=== PATIENT | female | born 1955 | race Caucasian/White ===

== ENCOUNTER → 2018-07-17 13:12 | Outpatient (CLI) | payer OTHER, SELFPAY ==
--- NOTE | 2018-07-17 13:20 | CT_ITS ---
CT pelvis wo con HISTORY: Attention right SI joint. Low back pain posterior pelvic pain pain extends down right leg : BURSITIS ORDERING PHYSICIAN: Robert Alegre PATIENT AGE: 63 years COMPARISON: CT abdomen and pelvis from October 2008. Axial views only available Technique: Helical CT scanning performed through the pelvis with axial, coronal and sagittal reconstruction performed. Additional 3-D volume rendering reconstruction. All CT scans at the facility use one or more dose reduction, viz: automated exposure control, ma/kV adjustment per patient size (including targeted exams where dose is matched to indication, i.e. head), or iterative reconstruction technique. FINDINGS: . I do not have previous lumbar studies the patient does have a prominent grade 2 anterolisthesis of L4 on L5 noted on the reconstruction images. Suspect this was Likely due to a pars defect and resulting prominent spondylolisthesis L4/5. (I have assigned the lowest defined vertebral body is L5 for this discussion.) There is been posterior fusion through this segment with pedicle screws at L3 and L5 with associated posterior fixation rods providing fixation to the L4/5 listhesis. There is a laminectomy through this segment also noted along with the disc spacer device at L 3/4 disc space. Pronounced narrowing at the L 4/5 disc level, and somewhat fragmented appearance to the posterior elements at L4/5.. Prominent facet arthropathy is seen at the at these lower levels of L-spine The patient has transitional vertebra which is designated as L5. L5 demonstrates prominent sacralization to the left with pseudoarthrosis with the left sacral ala. There are some reactive changes about the pseudoarthrosis. Yielding some mild sclerosis on both sides of this region. The right sacrum intact and unremarkable. I see no insufficiency fracture or other findings at the right sacrum. The SI joints seem to be symmetrical and similar to previous 2009 CT. Only scant sclerosis along the iliac margin of SI joints bilaterally but. The slight double line appearance on axial image 37 at the iliac margin right SI joint was seen in 2009 as well... The hips appear intact bilaterally and stable. Small cyst or herniation. Is seen at the anterior base of right femoral neck. No obvious joint effusion at either hip.. Pubis intact. Stable. The patient has a TAXATION AGENT shunt catheter was enters the abdomen cavity above and to the right of the umbilicus.. It is only partially imaged. Incidental small 3 mm calculus lower pole calyx right kidney.. No intrapelvic findings no adenopathy or masses at the pelvis. IMPRESSION (Note: The lowest segmented lumbar Vertebra was labeled L5 for this discussion) . .The patient has undergone posterior fusion L3-L5 with posterior laminectomy. . Pedicle screws seen at the designated L3 & L5 vertebra, with posterior fixation rods providing stabilization of the grade 2 anterior spondylolisthesis of L4 on L5 ( likely resulting from underlying spondylolysis at L4) Right sacrum appears intact and unremarkable. & Both SI joints appear intact. With No appreciable change since [address] Left sacrum: sacralization of designated L5 forms pseudoarthrosis to the left sacrum.. Mild reactive changes about the pseudoarthrosis at left sacrum appears similar to [address] Additional comments regarding right leg pain: I would note that there is greater narrowing of the right L4/5 neural foramen than left. L4/5.. Also note that Facet hypertrophy narrows the right foramen at L5/S1 more so than left foramen
== END ==
PROVIDERS: PCP Nurse Practitioner Family; Visit Provider Orthopaedic Surgery
DX: M46.1 Sacroiliitis, not elsewhere classified (principal)
CPT/HCPCS: 72192

== ENCOUNTER 2018-09-13 16:36 | Emergency (ER) | payer OTHER, SELFPAY ==
[2018-09-13 16:47] VITALS: BP 141/67; PULSE 73; RESP 18; TEMP 36.6; O2SAT 98; BMI 27.4
--- NOTE | 2018-09-13 16:54 | CT_ITS ---
CT lumbar spine wo con INDICATION: Pain following injury ITS.REASON: pain ORDERING PHYSICIAN: Santiago Craft MD PATIENT AGE: 63 years COMPARISON: 07 17 18 TECHNIQUE: Axial images obtained with sagittal and coronal reformats. All CT scans at the facility use one or more dose reduction, viz: automated exposure control, ma/kV adjustment per patient size (including targeted exams where dose is matched to indication, i.e. head), or iterative reconstruction technique. FINDINGS: There is lumbarization of the S1 segment. There is mild anterior wedging of T12 age indeterminate T11-T12: Degenerative disc disease. T12-L1: Unremarkable. L1-L2: Degenerative disc disease. L2-L3: Degenerative disc disease with endplate hypertrophy L3-L4: Degenerative disc disease with mild retrolisthesis of L3 of 4 mm with facet and ligamentum flavum hypertrophy and bulging disc with narrowing of the canal and bilateral foraminal narrowing. L4-L5: Prior posterior fusion. There are interpedicular screws at L4 and S1. Prior fusion at L4-L5 with posterior laminotomy defect. L5-S1: 13 mm anterolisthesis of L5 on S1 with loss of disc space. Prior posterior laminotomy. No acute fracture or dislocation. There is mild lumbar scoliosis convex right. There is a 2 mm left renal calculus nonobstructing IMPRESSION: 1. No definite acute fracture. 2. Mild wedging of T12 which may be old. MRI may be of further value if clinically warranted. 3. Multilevel degenerative changes as described above. Please see above for detailed description at each level. 4. Postsurgical changes from prior fusion at L4-L5 and S1. There is 13 mm anterolisthesis of L5 on S1. No previous exams are available for comparison.
--- NOTE | 2018-09-13 16:55 | [facility].EDGENADL ---
ED Disposition Clinical Impression: Strain of lumbar region Qualifiers: Encounter type: initial encounter Qualified Code(s): S39.012A - Strain of muscle, fascia and tendon of lower back, initial encounter Disposition: Home, Self-Care Condition on Discharge: Good Instructions: DI for Low Back Pain Referrals: Ladan Cortez APRN [Primary Care Provider] - - Critical Care Critical Care Time: No Attestation: On 09/13/18, the high probability of a clinically significant, sudden or life threatening deterioration of the following system(s) required my full and direct attention, intervention and personal management. The time I documented below is in addition to time spent performing reported procedures but includes the following listed in this critical care notation. Medical Decision Making - Medical Records Medical records reviewed: Yes: I reviewed the patient's medical records. - Juvencio Inquiry Pt receiving controlled substance: Yes Juvencio was queried for this patient: No Reason not queried -: Juvencio login issues Risks and benefits of using a controlled substance: were discussed with pt by me Vital Signs: 09/13/18 16:47 09/13/18 18:02 Temperature 97.8 F Temperature Source Oral Pulse Rate [Right Brachial] 73 66 Respiratory Rate 18 Blood Pressure [Right Arm] 141/67 H 156/79 H Blood Pressure Mean [Right Arm] 91 104 Blood Pressure Source [Right Arm] Automatic Cuff Blood Pressure Position [Right Arm] Sitting 02 Sat by Pulse Oximetry 98 99 Oxygen Delivery Method Room Air - Lab Data Lab results reviewed: Yes: I reviewed the patient's lab results. Lab Results 09/13/18 18:27: Urine Color Yellow, Urine Appearance Sl cloudy, Urine pH 6.0, Ur Specific [place] >= 1.030, Urine Protein Negative, Urine Glucose (UA) Negative, Urine Ketones Negative, Urine Blood Negative, Urine Nitrate Negative, Urine Bilirubin Negative, Urine Urobilinogen 0.2, Ur Leukocyte Esterase Negative, Ur Squamous Epith Cells 10-20, Urine Mucus 3+ Orders (Tests/Meds): ED MEDICATIONS Discontinued Medications Generic Name Dose Route Start Last Admin Trade Name Freq PRN Reason Stop Dose Admin Hydrocodone Bitart/Acetaminophen 1 tab 09/13/18 16:55 09/13/18 17:12 [place] 5/325mg Tablet PO 09/13/18 16:56 1 tab ONCE ONE Administration ORDERS Category Date Time Status CT lumbar spine wo con Stat Cat Scan 09/13/18 16:54 Taken - CT Data CT Scan: L-Spine Time Received: 19:04 (degen disc disease) ED CT Reviewed: Yes: I have viewed the radiologist's interpretation Preliminary Findings: Abnormal, No Fracture Seen Medical Decision Narrative: motrin, medrol, ice, see your doctor, return if worse General Adult HPI - General Stated complaint: pAIN IN BACK AREA,CAN'T WALK Time Seen by Provider: 09/13/18 16:55 Source of Information: Patient - History of Present Illness HPI narrative: mild to mod ache left lower back today after pulling branches, o/w no trauma, did not fall, ambulates w/ pain, no incont, no abdominal pain or fever, norco warnings given - Related Data Allergies Allergy/AdvReac Type Severity Reaction Status Date / Time heparin AdvReac Severe CLOTS Unverified 04/02/17 15:19 Iodine Allergy Unknown Uncoded 04/02/17 15:19 Povidone Iodine Allergy Unknown Uncoded 04/02/17 15:19 [facility] History - Hepatitis A Screen Attestation statement:: This patient has been screened for Hepatitis A risk factors. ROS Obtained: Yes Systems reviewed as appropriate & no additional complaints - Constitutional Constitutional: Denies fever(s) - Eyes Eyes: Denies change in vision - ENT Ears, Nose, Mouth, and Throat: Denies neck pain - Cardiovascular Cardiovascular: Denies chest pain - Respiratory Respiratory: No dyspnea - Gastrointestinal Gastrointestingal: Denies: abdominal pain - Genitourinary Female Genitourinary: Denies urinary incontinence - Musculoskeletal Musculoskeletal: Reports back pain
--- NOTE | 2018-09-13 16:58 | ED_ITS ---
ED Disposition Clinical Impression: Strain of lumbar region Qualifiers: Encounter type: initial encounter Qualified Code(s): S39.012A - Strain of muscle, fascia and tendon of lower back, initial encounter Disposition: Home, Self-Care Condition on Discharge: Good Instructions: DI for Low Back Pain Referrals: Ladan Cortez APRN [Primary Care Provider] - - Critical Care Critical Care Time: No Attestation: On 09/13/18, the high probability of a clinically significant, sudden or life threatening deterioration of the following system(s) required my full and direct attention, intervention and personal management. The time I documented below is in addition to time spent performing reported procedures but includes the following listed in this critical care notation. Medical Decision Making - Medical Records Medical records reviewed: Yes: I reviewed the patient's medical records. - Juvencio Inquiry Pt receiving controlled substance: Yes Juvencio was queried for this patient: No Reason not queried -: Juvencio login issues Risks and benefits of using a controlled substance: were discussed with pt by me Vital Signs: 09/13/18 16:47 09/13/18 18:02 Temperature 97.8 F Temperature Source Oral Pulse Rate [Right Brachial] 73 66 Respiratory Rate 18 Blood Pressure [Right Arm] 141/67 H 156/79 H Blood Pressure Mean [Right Arm] 91 104 Blood Pressure Source [Right Arm] Automatic Cuff Blood Pressure Position [Right Arm] Sitting 02 Sat by Pulse Oximetry 98 99 Oxygen Delivery Method Room Air - Lab Data Lab results reviewed: Yes: I reviewed the patient's lab results. Lab Results 09/13/18 18:27: Urine Color Yellow, Urine Appearance Sl cloudy, Urine pH 6.0, Ur Specific [place] >= 1.030, Urine Protein Negative, Urine Glucose (UA) Negative, Urine Ketones Negative, Urine Blood Negative, Urine Nitrate Negative, Urine Bilirubin Negative, Urine Urobilinogen 0.2, Ur Leukocyte Esterase Negative, Ur Squamous Epith Cells 10-20, Urine Mucus 3+ Orders (Tests/Meds): ED MEDICATIONS Discontinued Medications Generic Name Dose Route Start Last Admin Trade Name Freq PRN Reason Stop Dose Admin Hydrocodone Bitart/Acetaminophen 1 tab 09/13/18 16:55 09/13/18 17:12 [place] 5/325mg Tablet PO 09/13/18 16:56 1 tab ONCE ONE Administration ORDERS Category Date Time Status CT lumbar spine wo con Stat Cat Scan 09/13/18 16:54 Taken - CT Data CT Scan: L-Spine Time Received: 19:04 (degen disc disease) ED CT Reviewed: Yes: I have viewed the radiologist's interpretation Preliminary Findings: Abnormal, No Fracture Seen Medical Decision Narrative: motrin, medrol, ice, see your doctor, return if worse General Adult HPI - General Stated complaint: pAIN IN BACK AREA,CAN'T WALK Time Seen by Provider: 09/13/18 16:55 Source of Information: Patient - History of Present Illness HPI narrative: mild to mod ache left lower back today after pulling branches, o/w no trauma, did not fall, ambulates w/ pain, no incont, no abdominal pain or fever, norco warnings given - Related Data Allergies Allergy/AdvReac Type Severity Reaction Status Date / Time
[2018-09-13 18:02] VITALS: BP 156/79; PULSE 66; O2SAT 99
[2018-09-13 18:33] LABS: Microscopic, Urine URINE MICROSCOPIC (MICROSCOPIC)
[2018-09-13 18:34] LABS: Appearance,Urine SL CLOUDY (Clear); Bilirubin,Urine Negative (Negative); Blood, Urine Negative (Negative); Color,Urine YELLOW (Yellow); Glucose,Urine (UA) Negative (Negative); Ketones,Urine Negative (Negative); Leukocyte Esterase,Urine Negative (Negative); Nitrate,Urine Negative (Negative); Protein,Urine Negative (Negative); Specific Gravity, Urine >= 1.030 (1.005-1.030); Urobilinogen,Urine 0.2 EU/dl (0.2)
[2018-09-13 18:36] LABS: Mucus,Urine 3+ /lpf
[2018-09-13 19:21] VITALS: BP 132/74; PULSE 74; RESP 16; TEMP 36.7; O2SAT 98
== END 2018-09-13 19:22 | disposition home or self-care (01) ==
PROVIDERS: Emergency Provider Emergency Medicine Emergency Medical Services; PCP Nurse Practitioner Family
DX: S39.012A Strain of muscle, fascia and tendon of lower back, initial encounter (principal)
CPT/HCPCS: 72131; 81001; 99282

== ENCOUNTER → 2019-02-27 10:09 | Outpatient (CLI) | payer MEDICARE, OTHER, SELFPAY ==
--- NOTE | 2019-02-27 | ECG_ITS ---
APPROVED REPORT Exam: Resting ECG HR:73 bpm ECG Measurements Heart Rate 73 AXES [place] 194 P 67 QRSd 94 QRS 44 QT 400 T 54 QTc 440 <Conclusion> Normal sinus rhythm Late R-wave progression, unchanged Abnormal ECG Electronically signed by : Srinath King, 02/27/2019 12:55:28
--- NOTE | 2019-02-27 10:35 | XR_ITS ---
PROCEDURE: XR CHEST 2V CLINICAL HISTORY: COUGH,ALLERGIES COMPARISON: No exams were available for comparison FINDINGS: The cardiomediastinal silhouette and pulmonary vascularity are within normal limits. The lungs are clear without infiltrates, suspicious nodules, or pleural effusions. WARRANTY CLERK shunt traverses the right hemithorax. There is an old fracture of the right 8th rib. IMPRESSION: No acute findings. Dictated by: Franck Carrasquillo MD 02/27/2019 12:30 Electronically signed by Franck Carrasquillo MD in [place] 02/27/2019 12:30
[2019-02-27 10:48] LABS: Basophils % 0.4 % (0.1-2.0); Eosinophils % 0.1 % (0.1-12.0); Hematocrit 36.8 % (37.0-47.0); Lymphocytes # 0.7 K/mm3 (0.7-4.5); Lymphocytes % 18.3 % (10-50); Mean Corpuscular HGB Conc 29.8 g/dL (31.8-35.4); Mean Corpuscular Hemoglobin 26.8 pg (27.0-31.2); Mean Corpuscular Volume 89.8 fl (81-99); Mean Platelet Volume 8.5 fl (7.4-10.4); Monocytes # 0.1 K/mm3 (0.1-1.0); Monocytes % 1.1 % (1.7-9.3); Neutrophils # 3.3 K/mm3 (1.8-7.8); Neutrophils % 80.1 % (37.0-80.0); Platelet Count 324 K/mm3 (142-424); Red Cell Distribution Width 15.2 % (11.5-17.5); White Blood Count 4.1 K/mm3 (4.8-10.8)
[2019-02-27 10:58] LABS: Activated Partial Thrombo Time 25.7 seconds (23.6-34.0); INR 0.99 (0.9-1.1); Prothrombin Time 10.3 seconds (9.4-11.8)
[2019-02-27 12:37] LABS: Alanine Aminotransferase 16 U/L (12-78); Albumin Level 3.6 gm/dL (3.4-5.0); Alkaline Phosphatase 54 U/L (46-116); Anion Gap 12.5 mEq/L (5-15); Aspartate Amino Transferase 14 U/L (15-37); Bilirubin,Total 0.2 mg/dL (0.2-1.0); Blood Urea Nitrogen 18 mg/dL (7-18); Calcium 9.1 mg/dL (8.5-10.1); Carbon Dioxide 27 mmol/L (21.0-32.0); Chloride 104 mmol/L (98-107); Chol/HDL Ratio 2.9 (1-3.5); Cholesterol 156 mg/dL (140-200); Creatinine,Serum 0.61 mg/dL (0.55-1.02); Estimated Glomerular Filt Rate 98 ml/min (>60); GFR (African American) 119 ML/MIN (>60); Globulin 3.5 gm/dl (1.3-3.2); Glucose 125 mg/dL (74-106); HDL Cholesterol 53 mg/dL (29-89); LDL Cholesterol 77 mg/dL (0-130); Potassium 4.5 mmoL/L (3.5-5.1); Sodium 139 mmol/L (136-145); Total Protein,Serum 7.1 gm/dL (6.4-8.2); Triglycerides 128 mg/dL (30-200); VLDL Cholesterol 26 mg/dL (0-40)
== END ==
PROVIDERS: Visit Provider Nurse Practitioner Family
DX: Z01.818 Encounter for other preprocedural examination (principal); E11.65 Type 2 diabetes mellitus with hyperglycemia; Z51.81 Encounter for therapeutic drug level monitoring
CPT/HCPCS: 36415; 71046; 80053; 80061; 85025; 85610; 85730; 93005

== ENCOUNTER → 2019-09-30 13:36 | Outpatient (CLI) | payer MEDICARE, OTHER, SELFPAY ==
--- NOTE | 2019-09-30 13:52 | XR_ITS ---
PROCEDURE: XR CHEST 2V CLINICAL HISTORY: PRIOR SMOKER COMPARISON: XR CHEST 2V from 02/27/2019 FINDINGS: The cardiomediastinal silhouette and pulmonary vascularity are within normal limits. The lungs are clear without infiltrates, suspicious nodules, or pleural effusions. STORE CONSULTANT shunt traverses the right hemithorax. No acute bony findings. IMPRESSION: No change with no acute finding Dictated by: Franck Carrasquillo MD 09/30/2019 14:31 Electronically signed by Franck Carrasquillo MD in [facility] 09/30/2019 14:31
--- NOTE | 2019-09-30 14:17 | ECG_ITS ---
APPROVED REPORT Exam: Resting ECG HR:67 bpm ECG Measurements Heart Rate 67 AXES [place] 194 P 60 QRSd 98 QRS 16 QT 396 T 39 QTc 418 <Conclusion> Normal sinus rhythm Normal ECG Electronically signed by : Saúl Kim, 09/30/2019 16:34:44
== END ==
LOC: RT 13:42 → RAD 13:47
PROVIDERS: PCP Nurse Practitioner Family; Visit Provider Nurse Practitioner Family
DX: Z01.818 Encounter for other preprocedural examination (principal)
CPT/HCPCS: 71046; 93005

== ENCOUNTER → 2020-07-30 12:22 | Outpatient (CLI) | payer MEDICARE, OTHER, SELFPAY ==
--- NOTE | 2020-07-30 12:34 | XR_ITS ---
PROCEDURE: XR WRIST LT MIN 3V CLINICAL INDICATION: Pain COMPARISON: No exams were available for comparison FINDINGS: No fracture or dislocation of the wrist. No lytic or blastic change. There is normal mineralization. Minimal osteoarthritic change 1st metacarpophalangeal joint Other findings:None. IMPRESSION: No acute findings of the wrist. Dictated by: Franck Carrasquillo MD 07/30/2020 13:28 Franck Carrasquillo MD in [place] 07/30/2020 13:28
--- NOTE | 2020-07-30 12:35 | XR_ITS ---
PROCEDURE: XR HAND LT MIN 3V CLINICAL INDICATION: Injury with pain COMPARISON: No exams were available for comparison FINDINGS: There is an oblique fracture involving the proximal aspect of the proximal phalanx of the 5th digit with the distal fragment displaced medially by approximately 2 mm. There is good alignment. Mild osteoarthritic changes 3rd M CP joint Other findings:None. IMPRESSION: Minimally displaced fracture proximal phalanx 5th digit Dictated by: Franck Carrasquillo MD 07/30/2020 13:26 Franck Carrasquillo MD in [place] 07/30/2020 13:26
== END ==
PROVIDERS: PCP Nurse Practitioner Family; Visit Provider Nurse Practitioner Family
DX: S60.222A Contusion of left hand, initial encounter (principal)
CPT/HCPCS: 73110; 73130

== ENCOUNTER → 2020-11-10 09:51 | Outpatient (CLI) | payer OTHER, SELFPAY ==
[2020-11-10 10:35] LABS: Microscopic, Urine URINE MICROSCOPIC (MICROSCOPIC)
[2020-11-10 11:03] LABS: Appearance,Urine CLEAR (Clear); Bilirubin,Urine Negative (Negative); Blood, Urine Negative (Negative); Color,Urine YELLOW (Yellow); Glucose,Urine (UA) Negative (Negative); Ketones,Urine Negative (Negative); Leukocyte Esterase,Urine Negative (Negative); Nitrate,Urine Negative (Negative); Protein,Urine Negative (Negative); Urobilinogen,Urine 0.2 EU/dl (0.2)
[2020-11-10 11:10] LABS: WBC,Urine Occasional #/hpf (0-3)
[2020-11-10 11:12] LABS: Basophils % 0.7 % (0.1-2.0); Eosinophils % 0.7 % (0.1-12.0); Hematocrit 38.6 % (37.0-47.0); Hemoglobin 11.9 g/dL (12.2-16.2); Lymphocytes # 1.7 K/mm3 (0.7-4.5); Lymphocytes % 27.5 % (10-50); Mean Corpuscular HGB Conc 30.7 g/dL (31.8-35.4); Mean Corpuscular Hemoglobin 27.9 pg (27.0-31.2); Mean Corpuscular Volume 90.8 fl (81-99); Mean Platelet Volume 8.7 fl (7.4-10.4); Monocytes # 0.2 K/mm3 (0.1-1.0); Monocytes % 3.3 % (1.7-9.3); Neutrophils # 4.1 K/mm3 (1.8-7.8); Neutrophils % 67.7 % (37.0-80.0); Platelet Count 305 K/mm3 (142-424); Red Blood Count 4.25 M/mm3 (4.20-5.40); Red Cell Distribution Width 16.2 % (11.5-17.5)
--- NOTE | 2020-11-10 11:13 | ECG_ITS ---
APPROVED REPORT Exam: Resting ECG HR:64 bpm ECG Measurements Heart Rate 64 AXES [place] 202 P 77 QRSd 92 QRS 51 QT 420 T 33 QTc 433 Conclusion Normal sinus rhythm Normal ECG Electronically signed by : Srinath King, 11/13/2020 21:11:14
[2020-11-10 11:20] LABS: Activated Partial Thrombo Time 24.2 seconds (22.8-30.6); Prothrombin Time 10.9 seconds (10.1-12.5)
[2020-11-10 11:21] LABS: INR 0.92 (0.9-1.1)
[2020-11-10 11:22] LABS: Hemoglobin A1C 5.5 % (4.0-6.0)
[2020-11-10 11:43] LABS: Alanine Aminotransferase 15 U/L (12-78); Albumin Level 4.4 g/dl (3.5-5.0); Albumin/Globulin Ratio 1.4 (1.1-1.8); Alkaline Phosphatase 99 U/L (38-126); Aspartate Amino Transferase 21 U/L (14-36); Bilirubin,Total 0.4 mg/dl (0.2-1.3); Blood Urea Nitrogen 14 mg/dl (7-17); Calcium 9.3 mg/dl (8.4-10.2); Carbon Dioxide 26 mmol/L (22.0-30.0); Chloride 106 mmol/L (98-107); Estimated Glomerular Filt Rate 100 ml/min (>60); GFR (African American) 121 ML/MIN (>60); Globulin 3.1 g/dL (1.3-3.2); Glucose 91 mg/dl (74-100); Sodium 141 mmol/L (136-145); Total Protein,Serum 7.5 g/dl (6.3-8.2)
[2020-11-10 12:01] LABS: 25-OH Vitamin D, Total 50.7 ng/mL (30-100)
[2020-11-13 14:25] LABS: Miscellaneous Test 233
[2020-12-01 07:46] LABS: Cotinine <1.0; Nicotine <1.0
== END ==
PROVIDERS: Visit Provider Orthopaedic Surgery
DX: Z51.81 Encounter for therapeutic drug level monitoring; Z79.01 Long term (current) use of anticoagulants; Z79.899 Other long term (current) drug therapy; Z01.818 Encounter for other preprocedural examination; M25.532 Pain in left wrist
CPT/HCPCS: 36415; 80053; 80323; 81001; 82306; 83036; 85025; 85610; 85730; 87081; 93005

== ENCOUNTER 2021-02-22 11:00 | Outpatient (RCR) | payer MEDICARE, OTHER, SELFPAY | END 2021-03-06 14:47 | disposition home or self-care (01) | LOC: PT.CARL 11:00 | PROVIDERS: PCP Nurse Practitioner Family; Visit Provider Orthopaedic Surgery | DX: M25.561 Pain in right knee (principal); Z96.651 Presence of right artificial knee joint; M54.16 Radiculopathy, lumbar region | CPT/HCPCS: 97010; 97014; 97110; 97140; 97163; 97164; G0283 ==

== ENCOUNTER 2021-03-03 10:06 | Emergency (ER) | payer MEDICARE, OTHER, SELFPAY ==
[2021-03-03] VITALS (12 sets, daily range): BP systolic 155–189; BP diastolic 65–112; PULSE 66–83; RESP 14–21; TEMP 36.5–36.6; O2SAT 96–100; BMI 27.1; BMI 27.9
--- NOTE | 2021-03-03 10:09 | PC.NURSE ---
accucheck 127
--- NOTE | 2021-03-03 10:12 | CT_ITS ---
PROCEDURE: CT HEAD/BRAIN WO CON CLINICAL INDICATION: stroke prot. COMPARISON: CT HDWO CT HEAD W/O CONTRAST from 07/20/2013 TECHNIQUE: Axial images obtained. All CT scans at the facility use one or more dose reduction, viz: automated exposure control, ma/kV adjustment per patient size (including targeted exams where dose is matched to indication, i.e. head), or iterative reconstruction technique. FINDINGS: Significant artifact is present in the suprasellar region from prior aneurysm clips or coils obscuring much the brain from the star artifact at this level. There are mild encephalomalacia changes in the left cerebellum inferiorly. No midline shift or mass effect. A DE ICER FINISHER shunt traverses the right frontal lobe with the tip in the region of the anterior horn of the right lateral ventricle similar to the previous exam. Scattered periventricular and subcortical white matter hypointensities are noted suggesting ischemic gliotic change from microvascular disease. Small area of decreased attenuation is present in the right centrum semiovale centrally not readily apparent on the previous study and could represent area of interval ischemic gliotic change. No acute intracranial hemorrhage is apparent. No hydrocephalus. Of IMPRESSION: 1. No definite acute intracranial findings. 2. 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 3. Right DE ICER FINISHER shunt present with the tip at the region of the anterior horn right lateral ventricle. No hydrocephalus. Dictated by: Franck Carrasquillo MD 03/03/2021 10:32 Franck Carrasquillo MD in [place] 03/03/2021 10:32
--- NOTE | 2021-03-03 10:15 | XR_ITS ---
PROCEDURE: XR CHEST PORTABLE CLINICAL HISTORY: stroke prot COMPARISON: CR XR CHEST 2V from 02/27/2019 CR XR CHEST 2V from 09/30/2019 FINDINGS: Borderline cardiomegaly without failure. SPECIAL CERTIFICATE DICTATOR shunt traverses the right hemithorax. Pericardial fat pad noted on the right. The lungs are clear without infiltrates, suspicious nodules, or pleural effusions. No acute bony abnormalities. IMPRESSION: No acute findings. Dictated by: Franck Carrasquillo MD 03/03/2021 12:28 Franck Carrasquillo MD in [place] 03/03/2021 12:28
--- NOTE | 2021-03-03 10:27 | HMH.EDGENADL ---
ED Disposition Clinical Impression: Cerebrovascular accident Qualifiers: CVA mechanism: unspecified Qualified Code(s): I63.9 - Cerebral infarction, unspecified Disposition: Home, Self-Care Condition on Discharge: Fair Instructions: DI for Stroke-Ischemic Additional Instructions: Continue taking aspirin daily. Add Plavix Plavix 75 mg daily for 21 days. Contact your primary care doctor to arrange outpatient echocardiogram and 30-day heart monitor. Follow-up at [facility] stroke clinic. Call [phone] to make appointment. We spoke with Dr. Rodriguez. Dr. Tavera's office will call you to arrange follow-up in their office. Return to the emergency department if symptoms worsen. Prescriptions: Clopidogrel Bisulfate [Plavix 75mg Tab] 75 mg PO DAILY #21 tab Transmission Status: Pending to [facility] Referrals: Elham Pabon [Primary Care Provider] - - Critical Care Critical Care Time: No Attestation: On 03/03/21, the high probability of a clinically significant, sudden or life threatening deterioration of the following system(s) required my full and direct attention, intervention and personal management. The time I documented below is in addition to time spent performing reported procedures but includes the following listed in this critical care notation. Medical Decision Making - Medical Records Medical records reviewed: Yes: I reviewed the patient's medical records. MR Comment: Reviewed records on the [facility] epic link. The patient has had an MRI of her brain in 2019 after her neurosurgery/coil. The patient also confirms that she can safely get an MRI with her hardware. Dr. Kaminski also reports that MRI is safe. - Juvencio Inquiry Pt receiving controlled substance: No Vital Signs: 03/03/21 10:11 03/03/21 10:35 03/03/21 11:00 Temperature 97.7 F Temperature Source Oral Pulse Rate 83 74 Pulse Rate [Radial] 79 Respiratory Rate 16 18 18 Blood Pressure 167/83 H 155/71 H Blood Pressure [Right Arm] 188/65 H Blood Pressure Mean 101 93 Blood Pressure Mean [Right Arm] 106 Blood Pressure Position [Right Arm] Sitting 02 Sat by Pulse Oximetry 96 97 97 Oxygen Delivery Method Room Air 03/03/21 12:01 03/03/21 12:30 03/03/21 13:13 Temperature Temperature Source Pulse Rate 69 68 74 Pulse Rate [Radial] Respiratory Rate 16 14 16 Blood Pressure 171/84 H 162/73 H 182/85 H Blood Pressure [Right Arm] Blood Pressure Mean 105 95 117 Blood Pressure Mean [Right Arm] Blood Pressure Position [Right Arm] 02 Sat by Pulse Oximetry 98 97 98 Oxygen Delivery Method 03/03/21 13:30 03/03/21 14:00 03/03/21 15:47 Temperature Temperature Source Pulse Rate 73 66 77 Pulse Rate [Radial] Respiratory Rate 18 18 20 Blood Pressure 177/95 H 189/83 H 164/76 H Blood Pressure [Right Arm] Blood Pressure Mean 122 118 105 Blood Pressure Mean [Right Arm] Blood Pressure Position [Right Arm] 02 Sat by Pulse Oximetry 99 99 100 Oxygen Delivery Method 03/03/21 16:01 Temperature Temperature Source Pulse Rate Pulse Rate [Radial] Respiratory Rate 21 Blood Pressure 159/112 H Blood Pressure [Right Arm] Blood Pressure Mean 119 Blood Pressure Mean [Right Arm] Blood Pressure Position [Right Arm] 02 Sat by Pulse Oximetry 99 Oxygen Delivery Method - Lab Data Lab Results 03/03/21 10:34: WBC 6.7, RBC 4.13 L, Hgb 11.4 L, Hct 36.3 L, MCV 87.9, MCH 27.5, MCHC 31.3 L, RDW 15.8, Plt Count 327, MPV 9.5, Neut % (Auto) 68.1, Lymph % (Auto) 26.5, [place] % (Auto) 4.3, Eos % (Auto) 0.5, Baso % (Auto) 0.6, Neut # (Auto) 4.6, Lymph # (Auto) 1.8, [place] # (Auto) 0.3, Eos # (Auto) 0.0, Baso # (Auto) 0.0 03/03/21 10:34: Sodium 141, Potassium 4.1, Chloride 109 H, Carbon Dioxide 24, Anion Gap 12.1, BUN 17, Creatinine 0.50 L, Estimated Creat Clear 64, Estimated GFR 123, Est GFR ( Amer) 149, Glucose 112 H, Calcium 9.1, Total Bilirubin 0.1 L, AST 19,
[2021-03-03 10:45] LABS: Basophils % 0.6 % (0.1-2.0); Eosinophils % 0.5 % (0.1-12.0); Hematocrit 36.3 % (37.0-47.0); Hemoglobin 11.4 g/dL (12.2-16.2); Lymphocytes # 1.8 K/mm3 (0.7-4.5); Lymphocytes % 26.5 % (10-50); Mean Corpuscular HGB Conc 31.3 g/dL (31.8-35.4); Mean Corpuscular Hemoglobin 27.5 pg (27.0-31.2); Mean Corpuscular Volume 87.9 fl (81-99); Mean Platelet Volume 9.5 fl (7.4-10.4); Monocytes # 0.3 K/mm3 (0.1-1.0); Monocytes % 4.3 % (1.7-9.3); Neutrophils # 4.6 K/mm3 (1.8-7.8); Neutrophils % 68.1 % (37.0-80.0); Platelet Count 327 K/mm3 (142-424); Red Blood Count 4.13 M/mm3 (4.20-5.40); Red Cell Distribution Width 15.8 % (11.5-17.5); White Blood Count 6.7 K/mm3 (4.8-10.8)
[2021-03-03 10:52] LABS: INR 0.94 (0.9-1.1); Prothrombin Time 10.7 seconds (10.1-12.5)
--- NOTE | 2021-03-03 10:52 | CT_ITS ---
Procedure: CT ANGIO HEAD CT ANGIO NECK CLINICAL HISTORY: slurred speech, R sided weakness COMPARISON: CT CT ANGIO NECK from 03/03/[address] HEAD/BRAIN WO CON from 03/03/2021 TECHNIQUE: IV Contrast: 100ml Isovue 370 Axial images obtained with sagittal and coronal reformats. All CT scans at the facility use one or more dose reduction, viz: automated exposure control, ma/kV adjustment per patient size (including targeted exams where dose is matched to indication, i.e. head), or iterative reconstruction technique. FINDINGS: CTA neck: The aortic arch has an unremarkable appearance. No significant stenosis of the great vessels. Right common carotid unremarkable Right internal carotid unremarkable. The right ICA is tortuous in its mid aspect forming a loop. Left common carotid: Unremarkable. Left internal carotid artery minimal plaque at the bulb but no stenosis. The vertebrals have an unremarkable appearance No dissection, aneurysm, or occlusive change. The lung apices are clear. CTA head: Significant artifact is present in the distal aspect of the basilar artery from vascular coils/occlusion device with hyperdensity at this region and significant streak artifact. There appears to be a stent in the distal aspect of the basilar artery. Please correlate with operative report not available at the time of this reading. The artifact precludes adequate evaluation of the [id number] i.e. the A1 segment and proximal A2 segment of the anterior cerebral is a and the proximal aspect of the middle cerebral and proximal posterior cerebral arteries. Of the visualized vascular structures, no aneurysm or AVM is apparent. A right frontal FUEL HOUSE ATTENDANT shunt is present with the tip of the catheter at the anterior aspect of the anterior horn of the right lateral ventricle medially. IMPRESSION: 1. Negative CTA of the neck 2. Very limited CTA of the brain secondary to artifact from the occlusive material within the distal aspect of the basilar artery as described above. No peripheral aneurysm or AVMs apparent. Cannot adequately assess for aneurysm or vascular narrowing or occlusion at the [id number] Dictated by: Franck Carrasquillo MD 03/03/2021 12:13 Franck Carrasquillo MD in [place] 03/03/2021 12:13
--- NOTE | 2021-03-03 10:52 | CT_ITS ---
Procedure: CT ANGIO HEAD CT ANGIO NECK CLINICAL HISTORY: slurred speech, R sided weakness COMPARISON: CT CT ANGIO NECK from 03/03/[address] HEAD/BRAIN WO CON from 03/03/2021 TECHNIQUE: IV Contrast: 100ml Isovue 370 Axial images obtained with sagittal and coronal reformats. All CT scans at the facility use one or more dose reduction, viz: automated exposure control, ma/kV adjustment per patient size (including targeted exams where dose is matched to indication, i.e. head), or iterative reconstruction technique. FINDINGS: CTA neck: The aortic arch has an unremarkable appearance. No significant stenosis of the great vessels. Right common carotid unremarkable Right internal carotid unremarkable. The right ICA is tortuous in its mid aspect forming a loop. Left common carotid: Unremarkable. Left internal carotid artery minimal plaque at the bulb but no stenosis. The vertebrals have an unremarkable appearance No dissection, aneurysm, or occlusive change. The lung apices are clear. CTA head: Significant artifact is present in the distal aspect of the basilar artery from vascular coils/occlusion device with hyperdensity at this region and significant streak artifact. There appears to be a stent in the distal aspect of the basilar artery. Please correlate with operative report not available at the time of this reading. The artifact precludes adequate evaluation of the sthemu-ew-Kbidij i.e. the A1 segment and proximal A2 segment of the anterior cerebral is a and the proximal aspect of the middle cerebral and proximal posterior cerebral arteries. Of the visualized vascular structures, no aneurysm or AVM is apparent. A right frontal [employer] shunt is present with the tip of the catheter at the anterior aspect of the anterior horn of the right lateral ventricle medially. IMPRESSION: 1. Negative CTA of the neck 2. Very limited CTA of the brain secondary to artifact from the occlusive material within the distal aspect of the basilar artery as described above. No peripheral aneurysm or AVMs apparent. Cannot adequately assess for aneurysm or vascular narrowing or occlusion at the pnhwit-cw-Eyqroj Dictated by: Franck Carrasquillo MD 03/03/2021 12:13 Franck Carrasquillo MD in [place] 03/03/2021 12:13
[2021-03-03 10:53] LABS: Alanine Aminotransferase 16 U/L (12-78); Albumin Level 4.1 g/dl (3.5-5.0); Albumin/Globulin Ratio 1.4 (1.1-1.8); Alkaline Phosphatase 82 U/L (38-126); Anion Gap 12.1 mEq/L (5-15); Aspartate Amino Transferase 19 U/L (14-36); Blood Urea Nitrogen 17 mg/dl (7-17); Calcium 9.1 mg/dl (8.4-10.2); Carbon Dioxide 24 mmol/L (22.0-30.0); Chloride 109 mmol/L (98-107); Creatinine Clearance Estimated 64 mL/min (50-200); Estimated Glomerular Filt Rate 123 ml/min (>60); GFR (African American) 149 ML/MIN (>60); Glucose 112 mg/dl (74-100); Potassium 4.1 mmoL/L (3.5-5.1); Sodium 141 mmol/L (136-145); Total Protein,Serum 7.1 g/dl (6.3-8.2)
[2021-03-03 10:54] LABS: Bilirubin,Total 0.1 mg/dl (0.2-1.3)
--- NOTE | 2021-03-03 11:10 | ECG_ITS ---
APPROVED REPORT Exam: Resting ECG HR:72 bpm ECG Measurements Heart Rate 72 AXES CA 178 P 34 QRSd 82 QRS 22 QT 374 T 46 QTc 409 Conclusion Normal sinus rhythm Normal ECG Electronically signed by : Srinath King MD 03/04/2021 19:29:45
--- NOTE | 2021-03-03 12:00 | PC.NURSE ---
pt resting offers no c/o
--- NOTE | 2021-03-03 13:07 | PC.NURSE ---
Dr Walters spoke with Dr Tavera, pts neuro surgeon
--- NOTE | 2021-03-03 14:03 | MR_ITS ---
PROCEDURE: MR HEAD/BRAIN WO CON CLINICAL INDICATION: RULE OUT STROKE Right-sided facial droop and right-sided body weakness with slurred speech COMPARISON: CT CT HEAD/BRAIN WO CON from 03/03/2021 TECHNIQUE: Routine multiplanar multi echo sequences are performed without gadolinium enhancement. FINDINGS: Small amount artifact is present basilar artery tip coils. No midline shift or mass effect. There is a small area of restricted diffusion.. This extends from the lateral aspect of the left external capsule cephalad into the qureshi radiata measuring approximately 1 point 4 cm in length and to 0.5 cm in width. This area does not demonstrate any hemorrhagic component. On the flash hemo images there are areas of decreased signal along the right occipital lobe medial to the occipital horn of the right lateral ventricle and in the right parietal lobe in the subcortical region anteriorly. Small focus of decrease SWI signal in the right parietal lobe and also 1 in the left parietal lobe. There are scattered periventricular and subcortical T2 white matter hyperintensities consistent with ischemic gliotic change from microvascular disease. An old lacunar infarction is present in the right qureshi radiata. [employer]ENDI[employer] shunt is present from the right frontal approach with the tip in the region of the anterior horn of the right lateral ventricle. No hydronephrosis. T2 hyperintensities noted in the evita consistent with ischemic gliotic changes. The pituitary, optic chiasm, and craniocervical junction have an unremarkable appearance. There is a focal area of increased T2 signal in the left aspect of the corpus callosum. The [employer]ENDI[employer] P[employer] shunt traverses the anterior aspect of the corpus callosum on the right. IMPRESSION: 1. Small area of acute infarction involving the lateral aspect of the left external capsule extending into the coronal radiata on the left. 2. Prior coiling of basilar tip aneurysm. 3. There are scattered areas of decrease flash/hemo signal. This could be due to areas of chronic hemorrhage. Subacute hemorrhage could also cause this signal intensity however these areas are unremarkable on the remaining sequences. Dictated by: Franck Carrasquillo MD 03/03/2021 15:46 Franck Carrasquillo MD in [place] 03/03/2021 15:46
--- NOTE | 2021-03-03 14:08 | PC.NURSE ---
pt to MRI per wheelchair.
--- NOTE | 2021-03-03 15:00 | PC.NURSE ---
family at bedside updated on plan of care
--- NOTE | 2021-03-03 16:06 | PC.NURSE ---
Dr Walters speaking with Dr Shields
--- NOTE | 2021-03-03 16:25 | PC.NURSE ---
Dr Arias spoke with Dr Shields and Dr Tavera
== END 2021-03-03 17:27 | disposition home or self-care (01) ==
PROVIDERS: Emergency Provider Emergency Medicine; PCP Nurse Practitioner Family
DX: I63.89 Other cerebral infarction (principal); R29.810 Facial weakness
CPT/HCPCS: 70450; 70496; 70498; 70551; 71045; 80053; 85025; 85610; 93005; 96374; 99283; J2405; Q9967

== ENCOUNTER 2021-04-25 14:00 | Outpatient (RCR) | payer MEDICARE, OTHER, SELFPAY | END 2021-05-02 11:04 | disposition home or self-care (01) | LOC: OT 14:00 | PROVIDERS: PCP Nurse Practitioner Family; Visit Provider Nurse Practitioner Family | DX: I63.9 Cerebral infarction, unspecified (principal) | CPT/HCPCS: 97110; 97165; 97530 ==

== ENCOUNTER 2021-05-11 14:30 | Outpatient (RCR) | payer MEDICARE, OTHER, SELFPAY | END 2021-05-22 13:45 | disposition home or self-care (01) | LOC: PT.CARL 14:30 | PROVIDERS: PCP Nurse Practitioner Family; Visit Provider Nurse Practitioner Family | DX: I63.9 Cerebral infarction, unspecified (principal) | CPT/HCPCS: 97110; 97112; 97163; 97164; 97530 ==

== ENCOUNTER → 2021-10-17 08:30 | Outpatient (CLI) | payer MEDICARE, OTHER, SELFPAY ==
--- NOTE | 2021-10-17 08:34 | US_ITS ---
FINAL REPORT CLINICAL HISTORY: RUQ ABDOMINAL TENDERNESS FINDINGS: Sonographic images of the right upper quadrant were obtained. The pancreas is partially obscured. There is fatty infiltration of the liver appear There is gallbladder sludge. The wall of the gallbladder is borderline thickened measuring 3 mm. There is no evidence of biliary ductal dilatation.The common duct measures 3 mm. Limited images of the right kidney are unremarkable. IMPRESSION: Borderline gallbladder wall thickening with sludge. Fatty liver. Reviewed, Interpreted and Dictated by Zacarias Higgins III, MD Transcribed by Jazmine Balbuena Authenticated and . [facility]
== END ==
PROVIDERS: PCP Nurse Practitioner Family; Visit Provider Nurse Practitioner Family
DX: R10.811 Right upper quadrant abdominal tenderness (principal)
CPT/HCPCS: 76705

== ENCOUNTER → 2021-11-07 11:04 | Outpatient (CLI) | payer MEDICARE, OTHER, SELFPAY ==
--- NOTE | 2021-11-07 11:30 | ECG_ITS ---
APPROVED REPORT Exam: Resting ECG HR:71 bpm ECG Measurements Heart Rate 71 AXES TN 204 P 57 QRSd 101 QRS 11 QT 391 T 37 QTc 413 Conclusion SINUS RHYTHM NORMAL ECG UNCONFIRMED REPORT Electronically signed by : Srinath King MD 11/07/2021 14:10:18
[2021-11-07 12:03] LABS: Basophils % 0.4 % (0.1-2.0); Eosinophils % 0.3 % (0.1-12.0); Hematocrit 36.3 % (37.0-47.0); Hemoglobin 11.4 g/dL (12.2-16.2); Lymphocytes # 1.5 K/mm3 (0.7-4.5); Lymphocytes % 24.5 % (10-50); Mean Corpuscular HGB Conc 31.5 g/dL (31.8-35.4); Mean Corpuscular Hemoglobin 28.8 pg (27.0-31.2); Mean Corpuscular Volume 91.4 fl (81-99); Mean Platelet Volume 8.3 fl (7.4-10.4); Monocytes # 0.3 K/mm3 (0.1-1.0); Monocytes % 4.8 % (1.7-9.3); Neutrophils # 4.2 K/mm3 (1.8-7.8); Platelet Count 254 K/mm3 (142-424); Red Blood Count 3.97 M/mm3 (4.20-5.40); Red Cell Distribution Width 14.7 % (11.5-17.5); White Blood Count 6.1 K/mm3 (4.8-10.8)
[2021-11-07 12:48] LABS: Alanine Aminotransferase 17 U/L (12-78); Albumin Level 3.9 g/dl (3.5-5.0); Albumin/Globulin Ratio 1.4 (1.1-1.8); Alkaline Phosphatase 115 U/L (38-126); Anion Gap 9.4 mEq/L (5-15); Aspartate Amino Transferase 28 U/L (14-36); Bilirubin,Total < 0.1 mg/dl (0.2-1.3); Blood Urea Nitrogen 17 mg/dl (7-17); Calcium 9.2 mg/dl (8.4-10.2); Carbon Dioxide 25 mmol/L (22.0-30.0); Chloride 109 mmol/L (98-107); Estimated Glomerular Filt Rate 83 ml/min (>60); GFR (African American) 101 ML/MIN (>60); Globulin 2.8 g/dL (1.3-3.2); Glucose 96 mg/dl (74-100); Potassium 4.4 mmoL/L (3.5-5.1); Sodium 139 mmol/L (136-145); Total Protein,Serum 6.7 g/dl (6.3-8.2)
== END ==
PROVIDERS: PCP Nurse Practitioner Family; Visit Provider Surgery
DX: Z01.812 Encounter for preprocedural laboratory examination (principal); Z20.822 Contact with and (suspected) exposure to COVID-19; K82.9 Disease of gallbladder, unspecified
CPT/HCPCS: 36415; 80053; 85025; 93005; C9803; U0003; U0005

== ENCOUNTER 2021-11-09 09:37 | Day surgery (SDC) | payer MEDICARE, OTHER, SELFPAY ==
[2021-11-08 13:29] VITALS: BMI 28.8
[2021-11-09] VITALS (12 sets, daily range): BP systolic 130–165; BP diastolic 65–97; PULSE 54–79; RESP 12–18; TEMP 36.1–43; O2SAT 93–99
--- NOTE | 2021-11-09 10:30 | P.PN_ITS ---
[facility] Anesthesia Checklist - Structural Data Admitted From: Home Planned Operative Procedure/s: danuta burns Consent for Planned Operative Procedure(s) Verified: Yes - Additional verifications Anesthesia Reactions: No Hx Blood Transfusions: No - Airway Assessment C-Spine Mobility Assessed: Yes TMJ Mobility Assessed: Yes Dentition: Good Dentition - Neurological Assessment Level of Consciousness: Awake, Alert, Appropriate - Anesthesia Plan Anesthesia Risk discussed: Yes Anesthesia Plan: Verified ASA Class: II Anesthesia Type: General [facility] History I have reviewed the patient's past medical history: Yes Medical History: Reports:: Gastroesophageal Reflux Disease(GERD), Hyperlipidemia, Hypertension Denies:: Cancer, Diabetes Mellitus Type 1, Diabetes Mellitus Type 2, Internal Pacemaker, MRSA, Seizures *Have you ever received a pneumonia vaccine?: Yes *Have you received a flu vaccine this season?: Yes Anesthesia experience/problems:: none Laterality Cases: Right: Arthroscopy Hip, Arthroscopy Knee Other Surgeries: Yes: Colonoscopy. No: Pacemaker Amputation: No - *Social History Last grade of school completed: Some college Smoking Status: Never smoker Alcohol Intake: never Substance Use Type: denies use *Occupational Status:: retired Housing: house Household Members: spouse *Travel in the last 8 weeks: None Family Hx:: No significant family history
--- NOTE | 2021-11-09 11:59 | HMH.OPNOTE ---
Date of procedure: 11/09/21 Pre-op Diagnosis:: Chronic cholecystitis Post-op Diagnosis:: Same Procedure performed:: Laparoscopic cholecystectomy Surgeon:: Angel Gooden MD ANALYSIS DIRECTOR:: Ryan Romero Anesthesia: GETA Estimated blood loss (mL): 15 Operative findings:: Fairly severe pericholecystic fat stranding with adhesions between gallbladder and omentum/colon/small bowel/stomach Visible shunt catheter in right upper quadrant/right mid abdomen No obvious injury to visible portion of catheter Operative note:: After informed consent was obtained, the patient was taken to the operating room and placed in the supine position. General anesthesia was induced and the abdomen was prepped and draped in a sterile fashion. After infiltration with local anesthetic an infraumbilical incision was made. A Veress needle was placed in position. The abdomen was insufflated. A 5 mm optical trocar was placed in position. Under direct visualization, a 12 mm trocar was placed in the subxiphoid position and 2 additional 5 mm trocars were placed in the right upper quadrant. Right upper quadrant/right mid abdomen shunt catheter was visible. No obvious injury to or other complication related to catheter noted. The gallbladder was elevated up and over the liver margin. The tissue around the cystic duct was carefully dissected. 3 clips were placed proximally and the duct was transected with harmonic michael. Harmonic michael were then utilized to dissect the gallbladder away from the liver margin with careful attention to the control of the cystic artery. The gallbladder was placed in a retrieval bag and removed through the subxiphoid trocar site. The right upper quadrant was thoroughly irrigated. No active bleeding or bile leak was noted. Fascia at the subxiphoid trocar site was reapproximated utilizing the NeoClose device. The remaining trocars were removed. All wounds were irrigated and skin was closed with 4-0 Monocryl in a subcuticular fashion. Steri-Strips were applied. The patient's anesthetic agents were reversed and extubation was completed prior to transfer to recovery in stable condition. Condition: stable Disposition: PACU Specimens:: Gallbladder Complications:: No immediate
--- NOTE | 2021-11-09 12:07 | HMH.ANESI ---
[facility] Anesthesia Record Part I Intake, IV Amount: 1,200 Estimated blood loss (mL): 0 Urine output (mL): 0 Blood Pressure: 160/90 SaO2: 94 Pulse Rate: 78 Respiratory Rate: 12 Temperature: 97.2 F Patient is:: Awake, Stable Stable to PACU at:: 12:00
--- NOTE | 2021-11-09 12:42 | SUR.PHASEI ---
1235 called and gave detailed report to Malachi Zepeda RN [id number] transported via stretcher to post op. vital signs stable. rates pain level at a 4. left pt in stable condition with Malachi Zepeda RN at bedside.
--- NOTE | 2021-11-10 10:16 | HMH.ANESII ---
[facility] Anesthesia Record Part II Discharge Time: 12:39 Destination: Surgical Day Care (OP Surgery) PACU nurse assessment reviewed?: Yes Patient Condition:: Good Anesthesia Complications:: None Swallowing reflex intact?: Yes Cyanosis?: No Blood Pressure: 156/75 Pulse Rate: 71 Temperature: 97 F Mental Status: Alert & Oriented Pain level:: 4 Nausea and/or vomitting:: None Intake, IV Amount: 0
[2021-11-10 10:17] VITALS: BP 156/75; PULSE 71; TEMP 36.1
== END 2021-11-09 13:23 | disposition home or self-care (01) ==
LOC: OR 09:39
PROVIDERS: PCP Nurse Practitioner Family; Visit Provider Surgery
PROC: 0FT44ZZ Resection of Gallbladder, Percutaneous Endoscopic Approach (ICD-10-PCS; CPT 47562; principal; 2021-11-09 11:15)
DX: K81.1 Chronic cholecystitis (principal); K21.9 Gastro-esophageal reflux disease without esophagitis; I10 Essential (primary) hypertension; E78.5 Hyperlipidemia, unspecified; Z79.82 Long term (current) use of aspirin
CPT/HCPCS: 47562; 88304; 96374; J2405; J2710

== ENCOUNTER → 2022-06-08 09:16 | Outpatient (CLI) | payer MEDICARE, OTHER, SELFPAY ==
--- NOTE | 2022-06-08 09:29 | ECG_ITS ---
APPROVED REPORT Exam: Resting ECG HR:65 bpm ECG Measurements Heart Rate 65 AXES MS 205 P 72 QRSd 101 QRS 69 QT 400 T 39 QTc 412 Conclusion SINUS RHYTHM LOW QRS VOLTAGE IN PRECORDIAL LEADS [QRS DEFLECTION < 1.0 mV IN CHEST LEADS] NONSPECIFIC T-WAVE ABNORMALITY BORDERLINE ECG UNCONFIRMED REPORT Electronically signed by : Srinath King MD 06/09/2022 20:01:55
--- NOTE | 2022-06-08 09:35 | XR_ITS ---
FINAL REPORT CLINICAL HISTORY: HTN COMPARISON: 03/03/2021 FINDINGS: TWO-VIEW CHEST The heart size is normal. The mediastinum is normal. There is mild bibasilar atelectasis or scar. Shunt catheter is seen on the right. There is no pneumothorax. IMPRESSION: Mild bibasilar atelectasis versus scar. Reviewed, Interpreted and Dictated by Zacarias Higgins III, MD Transcribed by Jazmine Balbuena Authenticated and [facility][1]
--- NOTE | 2022-07-20 06:27 | PC.NURSE ---
EKG sent to [place].
== END ==
PROVIDERS: PCP Nurse Practitioner Family; Visit Provider Nurse Practitioner Family
DX: Z01.818 Encounter for other preprocedural examination (principal)
CPT/HCPCS: 71046; 93005

== ENCOUNTER 2023-03-21 15:00 | Outpatient (RCR) | payer MEDICARE, OTHER, SELFPAY | END 2023-04-17 14:05 | disposition home or self-care (01) | LOC: PT 15:00 | PROVIDERS: PCP Nurse Practitioner Family; Visit Provider Neurological Surgery | DX: Z74.09 Other reduced mobility (principal); I63.89 Other cerebral infarction | CPT/HCPCS: 97110; 97112; 97163; 97164; 97530 ==

== ENCOUNTER 2023-11-04 08:53 | Outpatient (CLI) | payer MEDICARE, OTHER, SELFPAY ==
--- NOTE | 2023-11-04 09:13 | XR_ITS ---
FINAL REPORT CLINICAL HISTORY: foot pain FINDINGS: Left foot THREE VIEW FINDINGS: Three views show no evidence of an acute, displaced fracture or dislocation of the visualized bony architecture. Mild 1st MTP degenerative joint disease is present. Moderate calcaneal spurring is present. IMPRESSION: Degenerative changes. No acute bony abnormality . Authenticated and [facility]
--- NOTE | 2023-11-04 09:13 | XR_ITS ---
FINAL REPORT CLINICAL HISTORY: foot pain FINDINGS: Right foot THREE VIEW FINDINGS: Three views show no evidence of an acute, displaced fracture or dislocation of the visualized bony architecture. The joint spaces appear normal. Mild calcaneal spurring is present. IMPRESSION: Unremarkable exam. Authenticated and [facility]
== END 2023-11-04 23:59 | disposition home or self-care (01) ==
LOC: RAD 08:55
PROVIDERS: PCP Nurse Practitioner Family; Visit Provider Nurse Practitioner
DX: M79.671 Pain in right foot (principal); M79.672 Pain in left foot
CPT/HCPCS: 73630